=== PATIENT | female | born 1965 | race Caucasian/White ===

== ENCOUNTER 2018-06-07 13:58 | Emergency (ER) | payer BC, OTHER ==
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
[2018-06-07 16:13] VITALS: BP 142/89
== END 2018-06-07 16:14 | disposition home or self-care (01) ==
LOC: ER 13:58
DX: S29.9XXA Unspecified injury of thorax, initial encounter (principal); V89.2XXA Person injured in unspecified motor-vehicle accident, traffic, initial encounter; I10 Essential (primary) hypertension
CPT/HCPCS: 99283